=== PATIENT | male | born 1965 | race Caucasian/White ===

== ENCOUNTER 2017-02-16 16:00 | Emergency (ER) | payer MEDICAID ==
[~2017-02-16] VITALS: Ht 172.7 cm; Wt 61.2 kg
[2017-02-16 16:00] VITALS: BP_SYST 148
[2017-02-16] MEDS ORDERED: IPRATROPIUM/ALBUTEROL SULFATE 3 ML AMPUL.NEB INH ONE (16:15)
[2017-02-16 18:08] VITALS: BP_SYST 141
== END 2017-02-16 18:08 | disposition home or self-care (01) ==
LOC: SED 16:00
DX: J20.9 Acute bronchitis, unspecified (principal); E11.9 Type 2 diabetes mellitus without complications; I10 Essential (primary) hypertension; Z88.0 Allergy status to penicillin
CPT/HCPCS: 36415; 71045; 86710; 94640; 99285

== ENCOUNTER 2017-07-03 22:32 | Emergency (ER) | payer MEDICAID ==
[~2017-07-03] VITALS: Ht 167.6 cm; Wt 77.1 kg
[2017-07-03 22:32] VITALS: BP_SYST 157
--- NOTE | 2017-07-03 22:32 | NUR ---
Patient to ER bed 3 to gown for evaluation. Side rails up. Report given to Tay ALTAMIRANO.
--- NOTE | 2017-07-03 22:35 | NUR ---
Dr Carson at bedside to evaluate patient.
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
--- NOTE | 2017-07-03 22:45 | NUR ---
Lab at bedside to obtain lab specimens. Per Dr Carson, no need to place IV at this time.
--- NOTE | 2017-07-03 22:55 | NUR ---
X-ray at bedside for films, family remains at bedside.
[2017-07-03 23:13] LABS: BASOPHILS % (AUTO) 0.7 % (0.0-2.0); CALCIUM 8.6 mg/dL (8.4-11.0); CREATININE 1.93 mg/dL (0.55-1.30); EOSINOPHILS # (AUTO) 0.1 K/uL (0.0-0.4); EOSINOPHILS % (AUTO) 2.7 % (0.0-4.0); HEMOGLOBIN 10.7 g/dL (14.0-18.0); LYMPHOCYTES # (AUTO) 1.7 K/uL (1.0-5.5); LYMPHOCYTES % (AUTO) 37.2 % (20.5-51.5); MEAN CORPUSCULAR HEMOGLOBIN 26 pg (27-31); MEAN CORPUSCULAR HGB CONC 34 % (32-36); MEAN CORPUSCULAR VOLUME 78 fL (79.0-98.0); MONOCYTES # (AUTO) 0.4 K/uL (0.0-1.0); MONOCYTES % (AUTO) 8.6 % (1.7-9.3); NEUTROPHILS # (AUTO) 2.4 K/uL (1.8-7.7); NEUTROPHILS % (AUTO) 50.8 % (40.0-70.0); PLATELET COUNT (AUTO) 164 K/uL (130-430); POTASSIUM 4.3 mmol/L (3.5-5.1); RED BLOOD CELL COUNT(AUTO) 4.11 MIL/uL (4.2-6.2); RED CELL DISTRIBUTION WIDTH 12.3 % (9.0-15.0); WHITE BLOOD COUNT (AUTO) 4.6 K/uL (4.8-10.8)
--- NOTE | 2017-07-03 23:15 | NUR ---
Patient to CT scan for films via gurney in stable condition.
[2017-07-03 23:19] LABS: ALBUMIN 3.5 g/dL (3.4-4.8); TOTAL BILIRUBIN 0.3 mg/dL (0.0-1.0)
--- NOTE | 2017-07-03 23:25 | NUR ---
Patient returned from CT scan via [facility], patient now reports pain in his chest, worse with movement, patient also c/o pain to his posterior neck that is also worse when he moves. Patient placed on equipment monitor phototypesetting which shows sinus rhythm without ectopy, patient also on BP monitor and pulse oximeter. Dr Carson is aware and additional orders have been received.
[2017-07-04] MEDS ORDERED: INSULIN REGULAR, HUMAN 10 UNITS/0.1 ML INJ SUBCUT ONE
--- NOTE | 2017-07-04 00:30 | NUR ---
Patient resting quietly in no acute distress with family at bedside. Awaiting dispo
[2017-07-04 01:05] VITALS: BP_SYST 158
--- NOTE | 2017-07-04 01:05 | NUR ---
Patient given written and verbal discharge instructions and verbalizes understanding. ER MD discussed with patient the results and treatment provided. Patient in stable condition. ID arm band removed. Rx of [place] given. Patient educated on pain management and to follow up with PMD. Pain Scale 2. Opportunity for questions provided and answered. Medication side effect fact sheet provided. Patient left ER ambulating with slow, steady gait in no acute distress with family at his side. Dr Carson is aware of patient's repeat accucheck reading of 299, and states that it is ok to discharge patient. No questions related to aftercare. No adverse reaction noted to medication.
== END 2017-07-04 01:05 | disposition home or self-care (01) ==
LOC: SED 22:32
DX: S01.81XA Laceration without foreign body of other part of head, initial encounter (principal); S01.111A Laceration without foreign body of right eyelid and periocular area, initial encounter; S80.01XA Contusion of right knee, initial encounter; E11.65 Type 2 diabetes mellitus with hyperglycemia; N28.9 Disorder of kidney and ureter, unspecified; I10 Essential (primary) hypertension; Z88.0 Allergy status to penicillin; V49.40XA Driver injured in collision with unspecified motor vehicles in traffic accident, initial encounter; Y93.89 Activity, other specified; Y92.410 Unspecified street and highway as the place of occurrence of the external cause; Y99.8 Other external cause status
CPT/HCPCS: 36415; 70450; 71046; 73564; 80053; 85025; 93005; 96372; 99285; J1815

== ENCOUNTER 2017-10-03 15:57 | Emergency (ER) | payer MEDICAID ==
[~2017-10-03] VITALS: Ht 165.1 cm; Wt 61.2 kg
[2017-10-03 15:57] VITALS: BP_SYST 146
[2017-10-03] MEDS ORDERED: KETOROLAC TROMETHAMINE 15 MG VIAL IM ONE (17:45)
[2017-10-03 17:50] VITALS: BP_SYST 168
== END 2017-10-03 17:50 | disposition home or self-care (01) ==
LOC: SED 15:57
DX: R07.89 Other chest pain (principal); E11.9 Type 2 diabetes mellitus without complications; I10 Essential (primary) hypertension; Z88.0 Allergy status to penicillin
CPT/HCPCS: 71045; 93005; 96372; 99284; J1885